=== PATIENT | female | born 1970 | race African-American/Black ===

== ENCOUNTER 2024-06-24 11:42 | Emergency (ER) | payer OTHER ==
[~2024-06-24] VITALS: Ht 160 cm; Wt 176.9 kg
[2024-06-24 11:57] VITALS: PULSE 78; RESP 15; TEMP 97.3; O2SAT 100
[2024-06-24] MEDS ORDERED: HYDROCHLOROTHIA25 MG PO (12:55)
[2024-06-24] MEDS ORDERED: CLONIDINE HCL0.1 MG PO (12:55)
== END 2024-06-24 13:24 | disposition home or self-care (01) ==
LOC: ER 12:00
DX: I10 Essential (primary) hypertension (principal); R51.9 Headache, unspecified; R60.9 Edema, unspecified
CPT/HCPCS: 99284